=== PATIENT | female | born 1990 | race Caucasian/White ===

== ENCOUNTER → 2024-11-21 21:09 | Emergency (ER) | payer OTHER, SELFPAY ==
[2024-11-21 21:13] VITALS: BP 164/100; BMI 23.8
--- NOTE | 2024-11-21 21:56 | ED.GENMED ---
History of Present Illness
General
Chief Complaint: Crisis Evaluation
Source: patient
Time Seen by Provider: 11/21/24 21:50
History of Present Illness
History of Present Illness:
34-year-old female presents to the emergency room by police who have filed a 302. Patient was [place] a bridge contemplating jumping in order to commit suicide. Patient denies doing anything else today to hurt herself. Specifically denies any
ingestions of pills or drugs. Patient does have a history of depression. She is seeing a psychiatrist. The only medication she has been prescribed is Seroquel. Patient states she has had psychiatric hospitalizations before. She smokes
cigarettes but denies daily alcohol use. She does occasionally use marijuana.
Phy Exam
Physical Exam
Physical Exam:
General: Awake, Alert, Oriented X3. Tearful
Vitals: unremarkable
Head: Atraumatic
Eyes: Pupils equal, EOMI
Throat: Airway intact, no exudates
Neck: Trachea midline
Lungs: Clear and equal b/l
Heart: Regular rate, no murmurs
Abd: Soft, Nontender, No pulsatile mass
Neuro: Nonfocal
Skin: Warm, dry, no rash
Extremities: pulses equal b/l, no edema
Course
Orders/Labs/Results
Orders:
Orders
11/21/24 21:21
Crisis Consult Urgent
Reason for Consult: suicidal
11/21/24 21:55
Lorazepam [Ativan] 1 mg PO NOW STA
Test Result ONCE
11/21/24 22:09
Acetaminophen Urgent
Alcohol Urgent
Complete Blood Count/With Diff Urgent
Comprehensive Metabolic Panel Urgent
HCG, Serum Qualitative Screen Urgent
Salicylate Urgent
11/21/24 22:11
Urine Drug Abuse Screen Urgent
Date Specimen was Collected: 11/21/24
Time Specimen was Collected: 22:10
11/21/24 22:44
ED Special Safety Observation ONCE
Observation level: One to Two
Abnormal Lab Results
11/21/24
22:09
Hgb 16.5 H g/dL
(12.0-16.0)
MCH 33.1 H pg
(27.0-31.0)
Chloride 110 H mmol/L
(98-107)
Carbon Dioxide 19 L mmol/L
(22-30)
Glucose 101 H mg/dl
(70-99)
AST 53 H U/L
(14-36)
ALT 52 H U/L
(0-35)
Salicylates < 1.0 L mg/dl
(2.0-20.0)
Acetaminophen < 10 L ug/ml
(10-30)
11/21/24 22:09
11/21/24 22:09
Vital Signs
Initial and Last Documented VS:
Initial Vital Signs
Temp Pulse Resp BP Pulse Ox
97.3 F 136 20 164/100 96
11/21/24 21:13 11/21/24 21:13 11/21/24 21:13 11/21/24 21:13 11/21/24 21:13
Last Documented Vital Signs
Temp Pulse Resp BP Pulse Ox
97.3 F 136 20 164/100 96
11/21/24 21:13 11/21/24 21:13 11/21/24 21:13 11/21/24 21:13 11/21/24 21:13
MDM/Problems Addressed
Differential Diagnosis Includes:
Suicidal ideations, depression, alcohol intoxication alcohol use disorder
MDM/Problems Addressed:
Patient presents to the emergency room by police after being found on a bridge making statements suggesting she was contemplating jumping off the bridge and committing suicide. Patient does not deny that she was contemplating suicide by jumping off
the bridge. Patient does endorse a history of depression. Police have filed a 302. Patient is medically clear for psychiatric evaluation. Defer ultimate disposition to telepsych.
*Pulse Oximetry
Patient hypoxic: no
*Critical Care Note
Total Time (30-74mins, 75-104mins- exclusive of procedures): Not Applicable
ED Attending Note
-
Portions of this chart may have been created with voice recognition software.� Occasional wrong word or��sound alike� substitutions may have occurred due to the inherent limitations of voice recognition software.
Discharge Plan
Departure
Patient Disposition: [facility]
Date of Disposition: 11/22/24
Time of Disposition: 01:44
Patient Status:: 302
Condition: Fair
Discharge Problem:
Suicidal ideation, Alcohol intoxication
Prescriptions:
No Action
No Current Medications
0
Referrals:
UNKNOWN - PT NOT,INTERVIEWE [Family Provider] -
Interventions
Interventions:
*Risk Screen - Suicide Last Done: 11/21/24 21:13
*General Assessment Last Done: 11/21/24 21:13
*Neglect/Abuse Screening Last Done: 11/21/24 21:13
*ED- Fall Risk Assessment Last Done: 11/21/24 21:13
*ED COVID-19 Vaccine History Last Done: 11/21/24 21:13
ED-Psychological Assessment Last Done: 11/21/24 21:30
Discharge Date and Time
Print Language: GREENLANDIC
[2024-11-21] MEDS: ATIVAN 1 MG PO (22:03)
[2024-11-21 22:19] LABS: % Basophils 1.1 % (0-2); % Eosinophils 1.4 % (0-6); % Immature Granulocytes 0.3 % (0-0.5); % Lymphocytes 26.9 % (20.5-51.1); % Monocytes 5.2 % (1.7-9.3); % Neutrophils 65.1 % (42.2-75.2); Absolute Basophils 0.1 10^3/uL (0-0.2); Absolute Eosinophils 0.1 10^3/uL (0-0.7); Absolute Lymphocytes 2.5 10^3/uL (1.2-3.4); Absolute Monocytes 0.5 10^3/uL (0.1-0.6); Absolute Neutrophils 5.9 10^3/uL (1.4-6.5); Hemoglobin 16.5 g/dL (12.0-16.0); Mean Corp Hgb Conc. 35.9 g/dL (33.0-37.0); Mean Corpuscular Hgb 33.1 pg (27.0-31.0); Mean Corpuscular Volume 92.2 fL (81.0-99.0); Nucleated Red Blood Cells % 0 %; Platelet Count 329 10^3/uL (130-400); Red Blood Cell Count 4.99 10^6/uL (4.20-5.40); Red Cell Dist. Width 12.4 % (11.5-14.5); White Blood Cell Count 9.1 10^3/uL (4.8-10.8)
[2024-11-21 22:31] LABS: ALT (SGPT) 52 U/L (0-35); AST (SGOT) 53 U/L (14-36); Acetaminophen < 10 ug/ml (10-30); Albumin 4.6 g/dl (3.5-5.0); Alcohol 246 mg/dl; Alkaline Phosphatase 95 U/L (38-126); Blood Urea Nitrogen 9 mg/dl (7-17); Calcium 9.5 mg/dl (8.4-10.2); Carbon Dioxide 19 mmol/L (22-30); Chloride 110 mmol/L (98-107); Estimated Creatinine Clearance 79 ml/min; Glucose 101 mg/dl (70-99); Potassium 3.8 mmol/L (3.5-5.1); Sodium 144 mmol/L (135-145); Total Bilirubin 0.4 mg/dl (0.2-1.3); Total Protein 7.5 g/dl (6.3-8.2); eGFR > 60.00
[2024-11-21 22:39] LABS: Amphetamines Negative (Negative); Barbiturates Negative (Negative); Benzodiazepines Negative (Negative); Buprenorphine Negative (Negative); Cocaine Negative (Negative); Marijuana Negative (Negative); Methadone Negative (Negative); Methamphetamines Negative (Negative); Opiates Negative (Negative); Phencyclidine Negative (Negative); Tricyclic Antidepressants Negative (Negative)
[2024-11-21 22:44] LABS: HCG, Serum Qualitative Screen Negative
[2024-11-21 23:16] LABS: Salicylate < 1.0 mg/dl (2.0-20.0)
[2024-11-22 01:54] VITALS: BP 136/74
--- NOTE | 2024-11-22 03:30 | DOWNTIME ---
There was a [employer] Downtime on 11/22/2024 from 0200 to 11/23/2023 at 0318 . Downtime documentation of patient's care, including medication administrations, has been reconciled in the electronic record per guidelines. Refer to the
patient's paper chart under the miscellaneous tab to see printed paper medication records and downtime forms.
[2024-11-22 11:00] VITALS: BP 154/100
== END ==
LOC: EMR 21:09
PROVIDERS: EMERGENCY PHYSICIAN Emergency Medicine
DX: R45.851 Suicidal ideations (principal); F10.129 Alcohol abuse with intoxication, unspecified; F32.A Depression, unspecified; F17.210 Nicotine dependence, cigarettes, uncomplicated; F60.3 Borderline personality disorder; J45.909 Unspecified asthma, uncomplicated
CPT/HCPCS: 99283; 80053; 80143; 80179; 80306; 82077; 84703; 85025